=== PATIENT | male | born 1990 | race African-American/Black ===

== ENCOUNTER 2019-04-06 23:42 | Inpatient (IN) | payer OTHER ==
[2019-04-07 00:09] LABS: BASOPHILS # (AUTO) 0.1 10^3/uL (0.0-0.1); EOSINOPHILS # (AUTO) 0.1 10^3/uL (0.0-0.7); EOSINOPHILS % (AUTO) 1.4 %; HGB - HEMOGLOBIN 14.1 g/dL (14.0-18.0); LYMPHOCYTES # (AUTO) 1.9 10^3/uL (1.5-3.5); LYMPHOCYTES % (AUTO) 29.7 %; MEAN CORPUSCULAR HEMOGLOBIN 27.8 pg (27.0-31.0); MEAN CORPUSCULAR HGB CONC 32.9 g/dL (32.0-36.0); MEAN CORPUSCULAR VOLUME 84.4 fL (80.0-94.0); MEAN PLATELET VOLUME 9.2 fL (7.4-11.4); MONOCYTES # (AUTO) 0.7 10^3/uL (0.0-1.0); MONOCYTES % (AUTO) 10.5 %; NEUTROPHILS # (AUTO) 3.6 10^3/uL (1.5-6.6); NEUTROPHILS % (AUTO) 57.1 %; PLT - PLATELET COUNT 226 10^3/uL (130-450); RED BLOOD COUNT 5.08 10^6/uL (4.70-6.10); RED CELL DISTRIBUTION WIDTH 12.6 % (12.0-15.0); WHITE BLOOD COUNT 6.3 x10^3/uL (4.8-10.8)
[2019-04-07 00:23] LABS: ALBUMIN 4.9 g/dL (3.2-5.5); ALBUMIN/GLOBULIN RATIO 1.6 (1.0-2.2); BILIRUBIN,TOTAL 0.6 mg/dL (0.2-1.0); CALCIUM 9.8 mg/dL (8.5-10.3)
--- NOTE | 2019-04-07 00:51 | ED Physician Documentation ---
PD HPI CHEST PAIN - Stated complaint Stated Complaint: CP/SOA - Chief complaint Chief Complaint: Cardiac - History obtained from History obtained from: Patient - History of Present Illness Timing - onset: How many days ago (2) Timing - onset during: Sleep Timing - duration: Days Timing - details: Abrupt onset Pain level max: 6 (with exertion) Pain level now: 2 Quality: Pain Location: Left chest Radiation: Other (no radiation) Improved by: Rest Worsened by: Exertion Associated symptoms: Shortness of air. No: Feeling faint / dizzy, General Weakness, Palpitations, Cough Similar symptoms before: Other (similar discomfort 9 years ago which resolved without medical attention (and thus no testing nor diagnosis)) Recently seen: Not recently seen - Additional information Additional information: patient says he woke 2 days ago with generalized bilateral chest pain that quickly became localized to left side of chest; he says that the pain gradually resolved from the upper left chest and neck, but left lower chest pain persists. The pain is distinctly worse with exertion and improved with rest. Mild pleuritic component and mild dyspnea with exertion, although these components were not offered on HPI but discussed in ROS. Denies recent injury, denies cough, denies fever. Review of Systems Constitutional: reports: Reviewed and negative Cardiac: reports: Chest pain / pressure. denies: Palpitations, Pedal edema, Calf pain Respiratory: reports: Dyspnea (mild TREVINO). denies: Cough, Hemoptysis, Wheezing GI: reports: Reviewed and negative Musculoskeletal: reports: Reviewed and negative PD PAST MEDICAL HISTORY - Past Medical History Past Medical History: No - Past Surgical History Past Surgical History: Yes HEENT: Other - Present Medications Home Medications: Ambulatory Orders Medication Instructions Recorded Confirmed No Known Home Medications 04/06/19 04/06/19 - Allergies Allergies/Adverse Reactions: Allergies Allergy/AdvReac Type Severity Reaction Status Date / Time No Known Drug Allergies Allergy Verified 04/06/19 23:51 - Social History Does the pt smoke?: No Smoking Status: Never smoker Does the pt drink ETOH?: No Does the pt have substance abuse?: No - Immunizations Immunizations are current?: Yes - POLST Patient has POLST: No PD ED PE NORMAL - Vitals Vital signs reviewed: Yes - General General: Alert and oriented X 3, No acute distress, Well developed/nourished - Neck Neck: Supple, no meningeal sign - Cardiac Cardiac: RRR, No murmur, No gallop, No rub - Respiratory Respiratory: No respiratory distress, Other (mild decreased breath sound left apex) - Abdomen Abdomen: Soft, Non tender - Derm Derm: Normal color, Warm and dry - Extremities Extremities: No edema Results - Vitals Vitals: Vital Signs - 24 hr 04/06/19 04/07/19 04/07/19 23:47 00:54 01:48 Temperature 36.6 C Heart Rate 66 79 62 Respiratory 16 19 14 Rate Blood Pressure 129/81 H 116/74 127/70 O2 Saturation 100 98 98 04/07/19 04/07/19 04/07/19 02:58 05:00 06:03 Temperature 36.7 C Heart Rate 65 53 L 59 L Respiratory 18 13 14 Rate Blood Pressure 117/79 113/73 120/93 H O2 Saturation 100 99 100 04/07/19 06:37 Temperature 36.7 C Heart Rate 59 L Respiratory 14 Rate Blood Pressure 120/93 H O2 Saturation 100 Oxygen O2 Source Non-rebreather mask Oxygen Flow Rate 15 - EKG (time done) No standard instances Rate: Rate (enter#) (62) Rhythm: NSR Max: Normal Intervals: Normal MO QRS: Normal Ischemia: Normal ST segments - Labs Labs: Laboratory Tests 04/06/19 04/06/19 23:59 23:59 WBC 6.3 RBC 5.08 Hgb 14.1 Hct 42.9 MCV 84.4 MCH 27.8 MCHC 32.9 RDW 12.6 Plt Count 226 MPV 9.2 Neut # (Auto) 3.6 Lymph # (Auto) 1.9 [place] # (Auto) 0.7 Eos # (Auto) 0.1 Baso # (Auto) 0.1 Absolute Nucleated RBC 0.00 Nucleated RBC % 0.0 Sodium 140 Potassium 3.8 Chloride 104 Carbon Dioxide 28 Anion Gap 8.0 BUN 15 Creatinine 1.0 Estimated GFR (MDRD) 107 Glucose 126 H Calcium 9.8 Total Bilirubin 0.6 AST 29 ALT 31 Alkaline Phosphatase 76 Total Protein 8.0 Albumin 4.9 Globulin 3.1 Albumin/Globulin Ratio 1.6 Lipase 29 - Rads (name of study) cxr Radiology: Prelim report reviewed, See rad report repeat cxr Radiology: Prelim report reviewed, See rad report Procedures - Chest Tube (location) left other anterior axillary line Chest tube preparation: Consent obtained, Sterile prep and drape Chest tube location: Left, Intercostal space - enter (2), Anterior axillary line Chest tube anesthesia: Lidocaine, CC (enter) (8) Chest tube size: 13 (Uresil ) Chest tube return: Air (via syringe aspiration (flutter-valve mechanism device)) Chest tube after care: Confirmed with xray, Pt tolerated well PD MEDICAL DECISION MAKING - ED course Complexity details: reviewed results, re-evaluated patient, considered differential, d/w patient ED course: NAD and normal vital signs during ED stay. CXR reveals left pneumothorax. D/W Dr. Restrepo, recommends placement of small chest tube (Uresil). This was placed by me and patient tolerated procedure well. Air was aspirated and repeat CXR reveals improvement in pneumothorax. He subsequently was taken for CT (ordered by Dr. Restrepo). I went to CT with him and aspirated more air from the Uresil immediately prior to the CT (while he was on CT table) until there was resistance (unable to draw/aspirate). CT reveals significant improvement in the pneumothorax. He was then admitted to [facility], surgical service. Departure - Departure Disposition: 66 [facility] DC/Xfer Clinical Impression: Pneumothorax on left Condition: Good Discharge Date/Time: 04/07/19 07:50
--- NOTE | 2019-04-07 01:49 | XRAY Report ---
Reason: chest pain Procedure Date: 04/07/2019 Accession Number: [id number] / [id number] Procedure: XR - Chest 2 View X-Ray CPT Code: 74683 Final Report FULL RESULT: EXAM: CHEST RADIOGRAPHY EXAM DATE: 04/07/2019 01:30 AM. CLINICAL HISTORY: Chest pain. COMPARISON: None. TECHNIQUE: 2 views. FINDINGS: Lungs/Pleura: Moderate to large left pneumothorax with apex to cupola distance measuring 3.5 cm. No lobar consolidation or pulmonary edema. Fluid level at left lung base suggesting small left pleural fluid/effusion. Mediastinum: Normal cardiac silhouette size. No mediastinal widening. Other: None. IMPRESSION: 1. Moderate to large left pneumothorax. 2. Small left pleural fluid. RADIA The call report notification system was initiated by Dr. Angela Carrera at 01:38 AM on 04/07/2019. The above call report findings were discussed with ED Physician by Dr. Angela Carrera at 01:47 AM on 04/07/2019.
[2019-04-07] MEDS ORDERED: LORazepam 2 MG/ML VIAL IVP STA (05:47)
[2019-04-07] MEDS ORDERED: BUFFERED LIDOCAINE 10 ML SYRINGE IU STA (05:47)
[2019-04-07] MEDS ORDERED: BUFFERED LIDOCAINE 10 ML SYRINGE ONE (05:50)
[2019-04-07] MEDS ORDERED: LIDOCAINE 2% 10 ML MDV ONE (06:19)
--- NOTE | 2019-04-07 06:34 | SURGERY HX AND PHYSICAL(T) ---
Surgical History & Physical - Chief Complaint/HPI Chief Complaint: Left chest pain History of Present Illness: Pleasant young man who presented to the ED with complaint of pain in his left chest for 2-3 days. During the interview with Dr. Khalil, he also reported exertional dyspnea. Further evaluation revealed a spontaneous pneumothorax on the left side with a 35mm drop in the apex of the lung associated with a small left pleural effusion. Dr. Khalil will place a small chest tube. I have been consulted for management of the problem in the hospital. Maricel denies any cold symptoms currently. He reports he had one several weeks ago but it resolved and he did not experience any lingering cough. He reports he otherwise feels well. - PMH/PSH/Social Hx Does the pt have a hx of MRSA?: No Eyes Ears Nose Throat (EENT): Other Smoking Status: Never smoker Does the pt drink ETOH?: No Does the pt have substance abuse?: No - Home Meds and Allergies Home Medications: No Known Home Medications 04/06/19 Allergies/Adverse Reactions: Allergies Allergy/AdvReac Type Severity Reaction Status Date / Time No Known Drug Allergies Allergy Verified 04/06/19 23:51 - Review of Systems Respiratory: Shortness of breath (Remaining 12 system review is negative), Other (Sharp pain in the left chest with inspiration) - Vital Signs Heart Rate: 59 Blood Pressure: 120/93 Temperature: 36.7 C Respiratory Rate: 14 O2 Saturation: 100 Weight (kg): 60.328 kg Height: 1.63 m - Physical Exam General Appearance: positive: No acute distress, Alert Eyes Bilatera: positive: Normal inspection, PERRL, EOMI ENT: positive: ENT inspection nml, Pharynx nml, No signs of dehydration Neck: positive: Nml inspection, No JVD, Trachea midline Respiratory: positive: No respiratory distress, Other (Breath sounds slightly decreased on the left side. No rhonchi or wheezing) Cardiovascular: positive: Regular rate & rhythm, No murmur Peripheral Pulses: positive: 2+ Abdomen: positive: Non-tender, No organomegaly, Nml bowel sounds, No distention Extremities: positive: Non-tender, Full ROM, Nml appearance, No pedal edema Neurologic/Psychiatric: positive: Oriented x3 - Patient Review Patient Review: Problems were reviewed with the patient during this visit. Medications were reviewed with the patient during this visit. Allergies were reviewed this patient during this visit. Pertinent Tests Reviewed: All pertitent test for this patient were reviewed. - Assessment & Plan Assessment and Plan: Very pleasant young man with second episode of spontaneous pneumothorax on the left. Will admit overnight and obtain a CT of the chest to evaluate for bleb disease. Recheck cxr in the AM.
[2019-04-07] MEDS ORDERED: ACETAMINOPHEN 325 MG TABLET PO PRN (06:38)
[2019-04-07] MEDS ORDERED: HYDROmorphone 0.5 MG/0.5 ML SYRINGE IVP PRN (06:38)
[2019-04-07] MEDS ORDERED: ONDANSETRON 4 MG/2 ML VIAL IVP PRN (06:38)
[2019-04-07] MEDS ORDERED: oxyCODONE 5 MG TABLET PO PRN (06:38)
[2019-04-07] MEDS ORDERED: SODIUM CHLORIDE FLUSH 0.9% 10 ML SYRINGE IVP PRN (06:38)
[2019-04-07] MEDS ORDERED: MORPHINE 2 MG/ML CARPUJECT IVP STA (07:33)
--- NOTE | 2019-04-07 07:37 | XRAY Report ---
Reason: pneumothorax Procedure Date: 04/07/2019 Accession Number: [id number] / [id number] Procedure: XR - Chest 1 View X-Ray CPT Code: 14093 Final Report FULL RESULT: EXAM: CHEST RADIOGRAPHY EXAM DATE: 04/07/2019 06:59 AM. CLINICAL HISTORY: Pneumothorax. COMPARISON: CHEST 2 VIEW 04/07/2019 1:23 AM. TECHNIQUE: 1 view. FINDINGS: Support apparatus: Tubing/device projects over the left upper lung field. Lungs/Pleura: Small to moderate left pneumothorax appears smaller than on prior exam with pleural separation at apex measuring approximately 2.4 cm (previously 3.5 cm). Trace left pleural effusion may be present, decreased from prior exam. Lung menjivar appear otherwise clear. Mediastinum: Within exam limitations, the cardiomediastinal contour is normal. Other: None. IMPRESSION: 1. Left pneumothorax has decreased in size, now small to moderate. 2. Trace left pleural effusion may be present, decreased from prior exam. RADIA
--- NOTE | 2019-04-07 08:11 | CT Report ---
Reason: Multiple episodes of left spontaneous pneumothorax Procedure Date: 04/07/2019 Accession Number: [id number] / [id number] Procedure: CT - CHEST WO CPT Code: Final Report FULL RESULT: EXAM: CT CHEST EXAM DATE: 04/07/2019 07:27 AM. CLINICAL HISTORY: Multiple episodes of left spontaneous pneumothorax. COMPARISONS: CHEST 1 VIEW 04/07/2019 6:42 AM. TECHNIQUE: Routine helical CT imaging was performed through the chest. IV contrast: None. Reconstructions: Coronal and sagittal. In accordance with CT protocol optimization, one or more of the following dose reduction techniques were utilized for this exam: automated exposure control, adjustment of mA and/or KV based on patient size, or use of iterative reconstructive technique. FINDINGS: Lungs/Pleura: Known very small left pneumothorax, with intrapleural air is seen medially at the left lung apex and lateral anterior upper chest, with an indwelling small-bore chest tube. There is a very small left-sided pleural fluid collection with associated atelectasis at the posterior left lung base. This portion of the pleural space also contains a very small locule of air. There is a small amount of intrapleural air at the anterior left lung base. No significant mediastinal shift. The right lung appears clear. No pneumomediastinum identified. No subcutaneous emphysema. Mediastinum: No adenopathy or masses. The heart and great vessels are normal. Bones: Unremarkable. Visualized Abdomen: Unremarkable. Other: None. IMPRESSION: Small left-sided hydropneumothorax, with indwelling chest tube. No significant mediastinal shift. RADIA
[2019-04-07] MEDS: SODIUM CHLORIDE FLUSH 0.9% 10 ML SYRINGE IVP SCH ×3 (08:21→23:53)
[2019-04-07] MEDS: IBUPROFEN 400 MG TABLET PO PRN ×3 (08:29→18:09)
--- NOTE | 2019-04-07 08:41 | PHARMACY PROGRESS NOTE ---
- Best Possible Medication History Admit Date and Time: 04/07/19 0639 Processed by: Nursing Medication History completed: Yes As the person ultimately responsible for medication therapy, providers are able to order a medication from an existing home medication list in [facility] via the "Reconcile Routine" prior to Confirmation of that medication by network support engineer. Such practice is discouraged except when the physician, in their clinical judgment, deems that a medical need exists for a medication without regard to previous use.
[2019-04-08] MEDS: IBUPROFEN 400 MG TABLET PO PRN ×2 (08:28→23:58)
[2019-04-08] MEDS: SODIUM CHLORIDE FLUSH 0.9% 10 ML SYRINGE IVP SCH ×3 (09:00→23:58)
--- NOTE | 2019-04-08 15:36 | PROVIDER PROGRESS NOTE ---
Subjective - General Admit Date: 04/07/19 - Review of Systems Wound/Incisions: positive: Dressing dry and intact General: positive: No symptoms Pulmonary: positive: No symptoms Objective - Patient Data Vital Signs: Vital Signs x48h Temp Pulse Pulse Resp BP Pulse Ox 04/08/19 12:42 36.7 C 60 16 99 04/08/19 08:00 36.7 C 56 L 16 102/65 99 Weight: Weight 04/06/19 04/07/19 04/08/19 23:59 23:59 23:59 Weight (kg) 60.328 kg 55.5 kg Intake & Output: Intake and Output Totals x24h 04/06/19 04/07/19 04/08/19 23:59 23:59 23:59 Intake Total 580 990 Balance 580 990 - Lab Results Lab Results: 04/06/19 23:59 04/06/19 23:59 - Current Medications Current Medications: Current Medications Generic Name Dose Route Start Last Admin Trade Name Freq PRN Reason Stop Dose Admin Ibuprofen 400 mg 04/07/19 06:38 04/08/19 08:28 Motrin PO 400 mg Q4HR PRN Administration Pain 1 to 4 Oxycodone HCl 5 mg 04/07/19 06:38 04/07/19 08:29 Roxicodone PO 5 mg Q4HR PRN Administration Pain 8 to 10 Sodium Chloride 10 ml 04/07/19 09:00 04/08/19 09:00 Normal Saline Flush 0.9% IVP 10 ml 0100,0900,1700 SHAHID Administration Impression/Plan - Problem List Problem List: Left spontaneous PTX Cont Small Chest tube and CXR am F/U w/Dr. Restrepo this week. May need formal VATS procedure.
[2019-04-09] MEDS: SODIUM CHLORIDE FLUSH 0.9% 10 ML SYRINGE IVP SCH ×2 (09:11→17:30)
[2019-04-09] MEDS: IBUPROFEN 400 MG TABLET PO PRN (09:11)
--- NOTE | 2019-04-09 12:03 | PROVIDER PROGRESS NOTE ---
Subjective - General Admit Date: 04/07/19 - Review of Systems Wound/Incisions: positive: Dressing dry and intact General: positive: No symptoms Pulmonary: positive: No symptoms Objective - Patient Data Reviewed Vital Signs: Yes Vital Signs: Vital Signs x48h Temp Pulse Resp BP Pulse Ox 04/09/19 08:00 36.3 C L 68 16 110/74 99 Weight: Weight 04/07/19 04/08/19 04/09/19 23:59 23:59 23:59 Weight (kg) 55.5 kg Intake & Output: Intake and Output Totals x24h 04/07/19 04/08/19 04/09/19 23:59 23:59 23:59 Intake Total 580 2090 1045 Balance 580 2090 1045 - Lab Results Lab Results: 04/06/19 23:59 04/06/19 23:59 - Current Medications Current Medications: Current Medications Generic Name Dose Route Start Last Admin Trade Name Freq PRN Reason Stop Dose Admin Ibuprofen 400 mg 04/07/19 06:38 04/09/19 09:11 Motrin PO 400 mg Q4HR PRN Administration Pain 1 to 4 Oxycodone HCl 5 mg 04/07/19 06:38 04/07/19 08:29 Roxicodone PO 5 mg Q4HR PRN Administration Pain 8 to 10 Sodium Chloride 10 ml 04/07/19 09:00 04/09/19 09:11 Normal Saline Flush 0.9% IVP 10 ml 0100,0900,1700 SHAHID Administration - Physical Exam Respiratory: positive: No respiratory distress (CXR pending) Impression/Plan - Problem List Problem List: Spontaneous PTX resolving Dr. Restrepo to assess tomorrow for poss VATS referral.
--- NOTE | 2019-04-09 13:48 | XRAY Report ---
Reason: ptx Procedure Date: 04/09/2019 Accession Number: [id number] / [id number] Procedure: XR - Chest 2 View X-Ray CPT Code: 12454 Final Report FULL RESULT: EXAM: CHEST RADIOGRAPHY EXAM DATE: 04/09/2019 11:46 AM. CLINICAL HISTORY: Ptx. COMPARISON: CHEST 1 VIEW 04/07/2019 6:42 AM CHEST 2 VIEW 04/07/2019 1:23 AM. TECHNIQUE: 2 views. FINDINGS: Lungs/Pleura: Left-sided pigtail pleural drain remains in place. Previous left-sided pneumothorax appears decreased and there may be a very tiny apical residual. No right-sided pneumothorax. No new focal consolidation. Minimal left-sided pleural fluid persists. Mediastinum: Heart and mediastinal contours are unremarkable. Other: None. IMPRESSION: 1. Interval decrease of previous left-sided pneumothorax. Very tiny residual may be present at the left apex. The left-sided pleural drain remains in place. 2. Small amount of residual left pleural fluid. RADIA
[2019-04-10] MEDS: SODIUM CHLORIDE FLUSH 0.9% 10 ML SYRINGE IVP SCH ×2 (00:41→09:38)
[2019-04-10 08:06] VITALS: BP 112/67
--- NOTE | 2019-04-10 12:40 | Discharge Plan ---
Discharge Plan Problem Reviewed?: Yes Disposition: 01 Home, Self Care Condition: Good Diet: Regular Activity Restrictions: Additional Comments (Must not lift more than 10 pounds or participate in any strenuous physcal activity for 1 week) Shower Restrictions: No (Wait 24 hours to shower) No Smoking: If you smoke, Please STOP! Call for help. Follow-up with: ESTER ORELLANA III, MD [Primary Care Provider] -
--- NOTE | 2019-04-10 12:40 | DISCHARGE SUMMARY ---
"Discharge Summary Admit Date: 04/07/19 Discharge Date: 04/10/19 Discharging Provider: Kaye Code Status: Attempt Resuscitation Condition at Discharge: Good Discharge Disposition: 01 Home, Self Care - DIAGNOSES Admission Diagnoses: Spontaneous pneumothorax Discharge Diagnoses with Status of Each Condition: Resolved pneumothorax. The underlying issue causing the pneumothorax is bleb disease of the apices of both lungs. Although the immediate issue is resolved, the patient will be referred to thoracic surgery for consideration of VATS procedure to prevent additional recurrences of the issue. - HPI History of Present Illness: Pleasant young man who presented to the ED with complaint of pain in his left chest for 2-3 days. During the interview with Dr. Khalil, he also reported exertional dyspnea. Further evaluation revealed a spontaneous pneumothorax on the left side with a 35mm drop in the apex of the lung associated with a small left pleural effusion. Dr. Khalil will place a small chest tube. I have been consulted for management of the problem in the hospital. Maricel denies any cold symptoms currently. He reports he had one several weeks ago but it resolved and he did not experience any lingering cough. He reports he otherwise feels well. - CONSULTS | PROCEDURES Consultations: None Procedures: Anterior chest tube placement in the ED - HOSPITAL COURSE Hospital Course: The patient was admitted for chest tube management and supportive care. The pneumothorax was seen to improve over the next 48 hours and the patient's pain resolved. CT of the chest revealed bilateral apical bleb disease. The chest tube was removed this AM and the patient is discharged with activity limitations for one week. Additionally, he will be referred to thoracic surgery for definitive management of bleb disease. - ALLERGIES Allergies/Adverse Reactions: Allergies Allergy/AdvReac Type Severity Reaction Status Date / Time No Known Drug Allergies Allergy Verified 04/06/19 23:51 - MEDICATIONS Home Medications: Ambulatory Orders Medication Instructions Recorded Confirmed No Known Home Medications 04/06/19 04/06/19 - PHYSICAL EXAM AT DISCHARGE General Appearance: positive: No acute distress, Alert, Mild distress Eyes Bilateral: positive: Normal inspection, PERRL, EOMI ENT: positive: ENT inspection nml, Pharynx nml, No signs of dehydration Neck: positive: Nml inspection, Thyroid nml, No JVD, Trachea midline Respiratory: positive: Chest non-tender, No respiratory distress, Breath sounds nml Cardiovascular: positive: Regular rate & rhythm, No murmur Peripheral Pulses: positive: 2+ Abdomen: positive: Non-tender, No organomegaly, Nml bowel sounds, No distention Skin: positive: Color nml Extremities: positive: Non-tender, Full ROM - LABS Result Diagrams: 04/06/19 23:59 04/06/19 23:59 - DIAGNOSTIC IMAGING Diagnostic Imaging Results: Final report reviewed Diagnostic Imaging Results Comments: Near complete resolution of the apical pneumothorax - SEPSIS Current Stage of Sepsis: Ruled out - QUALITY (Female Hip Fx Only) Was patient sent home on osteoporosis medication?: No - FOLLOW UP Follow Up: Followup with my office as needed. Patient will be referred to Thoracic surgery. - TIME SPENT Time Spent in Discharge (Minutes): 30"
== END 2019-04-10 13:00 | disposition home or self-care (01) | DRG 201 ==
LOC: ED 23:42 → MS2 04-07 06:39
PROVIDERS: ADMIT Surgery; ATTEND Surgery
DX: J93.12 Secondary spontaneous pneumothorax (principal); J98.4 Other disorders of lung
CPT/HCPCS: 32551; 36415; 71045; 71046; 71250; 80053; 83690; 85025; 93005; 96374; 99284; 99285; A9270; J2060

== ENCOUNTER 2019-05-18 16:52 | Outpatient (CLI) | payer OTHER | END 2019-05-18 16:53 | disposition EMS.NT | LOC: EMS 16:52 | PROVIDERS: ATTEND Surgery | DX: R07.9 Chest pain, unspecified (principal) ==

== ENCOUNTER 2019-11-06 13:39 | Emergency (ER) | payer OTHER ==
[2019-11-06] MEDS ORDERED: MORPHINE 2 MG/ML CARPUJECT IVP STA ×2 (13:53→14:30)
--- NOTE | 2019-11-06 13:56 | ED Physician Documentation ---
History of Present Illness - Stated complaint Stated Complaint: CP, SOA - Chief complaint Chief Complaint: Cardiac - History obtained from History obtained from: Patient - History of Present Illness Timing: Today Pain level max: 7 Pain level now: 7 - Additonal information Additional information: 29-year-old male presents to the emergency department with left-sided chest pain. History of left-sided pneumothorax in the past. This was spontaneous. Unknown etiology. He states this is happened twice now. Nothing makes it better or worse. No fevers. No cough. Denies smoking. Chest pain is sharp, left upper chest, nonradiating. Pleuritic Review of Systems Ten Systems: 10 systems reviewed and negative Constitutional: denies: Fever, Chills Respiratory: denies: Cough GI: denies: Nausea, Vomiting, Diarrhea Musculoskeletal: denies: Neck pain, Back pain Neurologic: denies: Headache PD PAST MEDICAL HISTORY - Past Medical History Past Medical History: Yes Other Past Medical History: Recurrent spontaneous pneumothorax - Past Surgical History Past Surgical History: Yes HEENT: Other - Present Medications Home Medications: Ambulatory Orders Medication Instructions Recorded Confirmed No Known Home Medications 04/06/19 04/06/19 - Allergies Allergies/Adverse Reactions: Allergies Allergy/AdvReac Type Severity Reaction Status Date / Time No Known Drug Allergies Allergy Verified 11/06/19 13:43 - Social History Does the pt smoke?: No Smoking Status: Never smoker Does the pt drink ETOH?: No Does the pt have substance abuse?: No - Immunizations Immunizations are current?: Yes - POLST Patient has POLST: No PD ED PE NORMAL - Vitals Vital signs reviewed: Yes - General General: Alert and oriented X 3, No acute distress - HEENT HEENT: Moist mucous membranes - Neck Neck: Supple, no meningeal sign - Cardiac Cardiac: RRR - Respiratory Respiratory: No respiratory distress, Other (Diminished breath sounds left upper lobe, otherwise clear breath sounds throughout) - Abdomen Abdomen: Soft, Non tender, Non distended - Derm Derm: Warm and dry - Extremities Extremities: Normal ROM s pain, No edema, No calf tenderness / cord - Neuro Neuro: Alert and oriented X 3 - Psych Psych: Normal mood, Normal affect Results - Vitals Vitals: Vital Signs - 24 hr 11/06/19 11/06/19 11/06/19 13:43 13:58 14:23 Temperature 36.5 C Heart Rate 87 104 H 101 H Respiratory 16 27 H 15 Rate Blood Pressure 109/74 118/81 H 114/80 O2 Saturation 97 96 100 11/06/19 11/06/19 14:38 15:08 Temperature Heart Rate 90 70 Respiratory 22 24 Rate Blood Pressure 104/68 132/99 H O2 Saturation 97 100 Oxygen O2 Source Nasal cannula - EKG (time done) 1344 Rate: Rate (enter#) (96) Rhythm: NSR [place]: Normal Intervals: Normal [place] QRS: Normal Ischemia: Normal ST segments - Labs Labs: Laboratory Tests 11/06/19 11/06/19 13:55 13:55 WBC 8.1 RBC 4.91 Hgb 13.7 L Hct 41.7 L MCV 84.9 MCH 27.9 MCHC 32.9 RDW 14.0 Plt Count 239 MPV 9.3 Neut # (Auto) 5.8 Lymph # (Auto) 1.4 L Chambers # (Auto) 0.8 Eos # (Auto) 0.0 Baso # (Auto) 0.1 Absolute Nucleated RBC 0.00 Nucleated RBC % 0.0 Sodium 135 Potassium 3.3 L Chloride 103 Carbon Dioxide 25 Anion Gap 7.0 BUN 12 Creatinine 1.1 Estimated GFR (MDRD) 95 Glucose 123 H Calcium 9.6 Total Bilirubin 1.4 H AST 19 ALT 15 Alkaline Phosphatase 59 Total Protein 7.6 Albumin 4.8 Globulin 2.8 Albumin/Globulin Ratio 1.7 Lipase 29 - Rads (name of study) Chest x-ray Radiology: Prelim report reviewed, EMP read contemporaneously, See rad report (Large left pneumothorax with near complete collapse of left lung. Right lung is clear.) s/p chest tube cxr Radiology: Prelim report reviewed, EMP read contemporaneously, See rad report (Reexpanded right lung, chest tube in place) Procedures - Chest Tube (location) right other other Chest tube preparation: Consent obtained, Time out completed Chest tube location: Right, Other (Mid clavicular line, 2nd IC space) Chest tube anesthesia: Lidocaine (with epi) Chest tube size: 13 Chest tube return: Air, Connected to suction Chest tube after care: Confirmed with xray, Pt tolerated well, Other (uresil device) PD MEDICAL DECISION MAKING - ED course Complexity details: reviewed old records, reviewed results, re-evaluated patient, considered differential, d/w patient, 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 Left-sided anterior chest tube was placed. Tolerated well. He had seen thoracic surgery, Dr. Nieto at [facility] who stated that a VATS would not need to be done unless it recurred again. Therefore will contact [facility] for possible transfer. 1500 - Dr. Goldberg, thoracic surgery at [facility] graciously accepts in transfer. Patient is hemodynamically stable. Pain well controlled. This document was made in part using voice recognition software. While efforts are made to proofread this document, sound alike and grammatical errors may occur. COBRA forms completed IMPRESSION: Interval placement of left apical pigtail catheter with significant almost complete reexpansion of the left lung. Departure - Departure Disposition: 02 Transfer Acute Care Hosp Clinical Impression: Pneumothorax on left Condition: Stable
[2019-11-06 14:03] LABS: BASOPHILS # (AUTO) 0.1 10^3/uL (0.0-0.1); BASOPHILS % (AUTO) 0.6 %; EOSINOPHILS % (AUTO) 0.2 %; HGB - HEMOGLOBIN 13.7 g/dL (14.0-18.0); LYMPHOCYTES # (AUTO) 1.4 10^3/uL (1.5-3.5); LYMPHOCYTES % (AUTO) 17.2 %; MEAN CORPUSCULAR HEMOGLOBIN 27.9 pg (27.0-31.0); MEAN CORPUSCULAR HGB CONC 32.9 g/dL (32.0-36.0); MEAN CORPUSCULAR VOLUME 84.9 fL (80.0-94.0); MEAN PLATELET VOLUME 9.3 fL (7.4-11.4); MONOCYTES # (AUTO) 0.8 10^3/uL (0.0-1.0); MONOCYTES % (AUTO) 9.6 %; NEUTROPHILS # (AUTO) 5.8 10^3/uL (1.5-6.6); NEUTROPHILS % (AUTO) 72.2 %; PLT - PLATELET COUNT 239 10^3/uL (130-450); RED BLOOD COUNT 4.91 10^6/uL (4.70-6.10); WHITE BLOOD COUNT 8.1 x10^3/uL (4.8-10.8)
[2019-11-06] MEDS ORDERED: LIDOCAINE 2%-EPI 1:100000 20 ML MDV SUBQ STA (14:03)
[2019-11-06] MEDS ORDERED: LIDOCAINE 2%-EPI 1:100000 20 ML MDV ONE (14:10)
[2019-11-06 14:15] LABS: ALBUMIN 4.8 g/dL (3.2-5.5); ALBUMIN/GLOBULIN RATIO 1.7 (1.0-2.2); BILIRUBIN,TOTAL 1.4 mg/dL (0.2-1.0); CALCIUM 9.6 mg/dL (8.5-10.3); CREATININE 1.1 mg/dL (0.6-1.2); TOTAL PROTEIN 7.6 g/dL (6.7-8.2)
--- NOTE | 2019-11-06 14:21 | XRAY Report ---
PROCEDURE: Chest 1 View X-Ray INDICATIONS: chest pain, spontaneous ptx TECHNIQUE: One view of the chest was acquired. COMPARISON: 04/09/2019 FINDINGS: Surgical changes and devices: None. Lungs and pleura: There is a large left-sided pneumothorax. Right lung is clear. Mediastinum: Mediastinal contours appear normal. Heart size is normal. Bones and chest wall: No suspicious bony lesions. Overlying soft tissues appear unremarkable. IMPRESSION: Large left pneumothorax with near complete collapse of left lung. Right lung is clear. Call was made to the ER at 2:22 PM on 11/06/2019. Referring clinician is in the process of placing a l eft-sided chest tube. Reviewed by: Kartik Scott MD on 11/06/2019 2:20 PM PDT Approved by: Kartik Scott MD on 11/06/2019 2:20 PM PDT Station ID: [id number]
--- NOTE | 2019-11-06 14:51 | XRAY Report ---
PROCEDURE: Chest for Line Placement INDICATIONS: S/P CHEST TUBE PLACEMENT TECHNIQUE: One view of the chest was acquired. COMPARISON: 11/06/2019 FINDINGS: A pigtail catheter has been placed in the left apex. The lung has almost entirely reexpanded, with on ly a trace apical pneumothorax now present. The right lung and pleural space are clear. No tracheal o r mediastinal shift. Normal heart size. IMPRESSION: Interval placement of left apical pigtail catheter with significant almost complete reexpansion of th e left lung. Reviewed by: Evin Montemayor MD on 11/06/2019 2:50 PM PDT Approved by: Evin Montemayor MD on 11/06/2019 2:50 PM PDT Station ID: [id number]
[2019-11-06 17:11] VITALS: BP 113/81
== END 2019-11-06 17:29 | disposition short-term general hospital (02) ==
LOC: ED 13:39
DX: J93.83 Other pneumothorax (principal)
CPT/HCPCS: 32551; 36415; 71045; 80053; 83690; 85025; 93005; 99284

== ENCOUNTER 2019-11-06 17:31 | Outpatient (CLI) | payer OTHER | END 2019-11-06 17:32 | disposition short-term general hospital (02) | LOC: EMS 17:31 | PROVIDERS: ATTEND Surgery | DX: J93.9 Pneumothorax, unspecified (principal) | CPT/HCPCS: A0425; A0426 ==